=== PATIENT | female | born 1995 | race Caucasian/White ===

== ENCOUNTER 2022-01-11 12:15 | Emergency (ER) | payer OTHER ==
[~2022-01-11] VITALS: Ht 154.9 cm; Wt 64.5 kg
[2022-01-11] MEDS ORDERED: VITAD400CA PO (12:28)
[2022-01-11] MEDS ORDERED: UNIS25TA3 PO (12:28)
[2022-01-11] MEDS ORDERED: ONDA4TAB6 PO (12:28)
[2022-01-11] MEDS ORDERED: MULTTAB20 PO (12:28)
[2022-01-11] MEDS ORDERED: FAMO40TA3 PO (12:28)
[2022-01-11] MEDS ORDERED: METO1TAB7 PO (12:28)
[2022-01-11] MEDS ORDERED: ESOM1CAP5 PO (12:28)
[2022-01-11] MEDS ORDERED: RA N1TAB PO (12:28)
[2022-01-11 13:54] LABS: BASO % 0.4 % (0.0-1.0); EOS % 0.4 % (0.0-3.0); LYMPH # 1.8 10^3/uL (1.5-5.0); LYMPH % 21.3 % (24.0-44.0); MEAN CORPUSCULAR HGB CONC 34.2 g/dl (32.0-36.5); MEAN CORPUSCULAR VOLUME 87.8 fl (80.0-96.0); MONO # 0.4 10^3/uL (0.0-0.8); NEUTROPHILS # 6.1 10^3/uL (1.5-8.5); NEUTROPHILS % 72.5 % (36.0-66.0); PLATELET COUNT, AUTOMATED 214 10^3/uL (150-450); RED BLOOD COUNT 4.33 10^6/uL (4.00-5.40); WHITE BLOOD COUNT 8.4 10^3/uL (4.0-10.0)
[2022-01-11 14:44] LABS: ALBUMIN 3.3 GM/DL (3.2-5.2); ALT/SGPT 24 U/L (12-78); BILIRUBIN,TOTAL 0.4 MG/DL (0.2-1.0); BLOOD UREA NITROGEN 10 MG/DL (7-18); CALCIUM LEVEL 8.5 MG/DL (8.5-10.1); CARBON DIOXIDE LEVEL 25 MEQ/L (21-32); CHLORIDE LEVEL 106 MEQ/L (98-107); CREATININE FOR GFR 0.58 MG/DL (0.55-1.30); GLOMERULAR FILTRATION RATE > 60.0 (>60); GLUCOSE, FASTING 79 MG/DL (70-100); HCG, SERUM QUANTITATIVE 145886 MIU/ML; POTASSIUM SERUM 4.1 MEQ/L (3.5-5.1); SODIUM LEVEL 138 MEQ/L (136-145); TOTAL PROTEIN 6.7 GM/DL (6.4-8.2)
[2022-01-11] MEDS ORDERED: MIRA3350 PO (16:23)
[2022-01-11] MEDS ORDERED: DULC10SU2 PR (16:23)
[2022-01-11] MEDS ORDERED: FLEEENE12 PR (16:24)
[2022-01-11 16:36] VITALS: BP 119/74
== END 2022-01-11 16:38 | disposition home or self-care (01) ==
LOC: M ED 12:15
DX: O26.899 Other specified pregnancy related conditions, unspecified trimester (principal); R10.84 Generalized abdominal pain; K59.00 Constipation, unspecified; Z91.011 Allergy to milk products; Z88.8 Allergy status to other drugs, medicaments and biological substances; Z79.899 Other long term (current) drug therapy; Z3A.09 9 weeks gestation of pregnancy

== ENCOUNTER 2022-08-05 17:14 | Outpatient (CLI) | payer OTHER ==
[~2022-08-05] VITALS: Ht 154.9 cm; Wt 74.3 kg
[~2022-08-05 17:14] MED LIST: DULC10SU2 PR; ESOM1CAP5 PO; FAMO40TA3 PO; FLEEENE12 PR; METO1TAB7 PO; MIRA3350 PO; MULTTAB20 PO; ONDA4TAB6 PO; RA N1TAB PO; UNIS25TA3 PO; VITAD400CA PO
[2022-08-05 17:35] VITALS: BP 116/55
[2022-08-05] MEDS ORDERED: RIBO400T PO (17:41)
[2022-08-05] MEDS ORDERED: ACET325C5 PO (17:42)
[2022-08-05] MEDS ORDERED: HOME MED LIST COMPLETE! XX SCH (17:45)
[2022-08-05 18:30] LABS: HEMATOCRIT 30.4 % (36.0-47.0); HEMOGLOBIN 9.8 g/dl (12.0-15.5); MEAN CORPUSCULAR HEMOGLOBIN 28.2 pg (27.0-33.0); MEAN CORPUSCULAR HGB CONC 32.2 g/dl (32.0-36.5); MEAN CORPUSCULAR VOLUME 87.4 fl (80.0-96.0); PLATELET COUNT, AUTOMATED 136 10^3/uL (150-450); RED BLOOD COUNT 3.48 10^6/uL (4.00-5.40); WHITE BLOOD COUNT 7.8 10^3/uL (4.0-10.0)
[2022-08-05 19:00] LABS: ALBUMIN 2.5 G/DL (3.2-5.2); ALKALINE PHOSPHATASE 127 U/L (46-116); ALT/SGPT 20 U/L (7.0-40); AST/SGOT 42 U/L (<34); BILIRUBIN,TOTAL 0.6 MG/DL (0.3-1.2); BLOOD UREA NITROGEN 11 MG/DL (9-23); CARBON DIOXIDE LEVEL 21 MMOL/L (20-31); CHLORIDE LEVEL 106 MMOL/L (98-107); CREATININE FOR GFR 0.49 MG/DL (0.55-1.30); GLOMERULAR FILTRATION RATE > 60.0 (>60); GLUCOSE, FASTING 77 MG/DL (60-100); SODIUM LEVEL 139 MMOL/L (136-145); TOTAL PROTEIN 5.5 G/DL (5.7-8.2)
[2022-08-05 19:14] VITALS: BP 117/74
== END 2022-08-05 20:52 | disposition home or self-care (01) ==
LOC: M LDO 17:14
PROVIDERS: ATTEND Registered Nurse
DX: O99.613 Diseases of the digestive system complicating pregnancy, third trimester (principal); Z3A.38 38 weeks gestation of pregnancy; K80.20 Calculus of gallbladder without cholecystitis without obstruction; O26.613 Liver and biliary tract disorders in pregnancy, third trimester; K76.0 Fatty (change of) liver, not elsewhere classified; Z88.8 Allergy status to other drugs, medicaments and biological substances; Z91.011 Allergy to milk products; Z91.012 Allergy to eggs; Z91.018 Allergy to other foods; Z91.048 Other nonmedicinal substance allergy status; Z79.899 Other long term (current) drug therapy
CPT/HCPCS: 36415; 59025; 76705; 80053; 85027; 93005; G0378; G0463

== ENCOUNTER 2022-08-17 02:28 | Inpatient (IN) | payer OTHER ==
[~2022-08-17] VITALS: Ht 154.9 cm; Wt 75.2 kg
[2022-08-17] VITALS (32 sets, daily range): BP systolic 98–178; BP diastolic 56–134
[~2022-08-17 02:28] MED LIST changes: +ACET325C5 PO; +RIBO400T PO
[2022-08-17] MEDS ORDERED: TRANEXAMIC ACID INJection 1,000 MG in NS 100 ML IV PRN (03:05)
[2022-08-17] MEDS ORDERED: METHYLERGONOVINE MALEATE 0.2 MG/ML VIAL (J2210) IM PRN ×2 (03:05→09:50)
[2022-08-17] MEDS ORDERED: OXYTOCIN DRIP 30 UNITS in IV 1 EA IV PRN ×4 (03:05)
[2022-08-17] MEDS ORDERED: LIDOCAINE 1% MDV 20ML VIAL INFIL PRN (03:05)
[2022-08-17] MEDS ORDERED: CARBOPROST TROMETHAMINE 250 MCG/ML AMP IM PRN (03:05)
[2022-08-17 03:54] LABS: HEMOGLOBIN 10.1 g/dl (12.0-15.5); MEAN CORPUSCULAR HEMOGLOBIN 28.1 pg (27.0-33.0); MEAN CORPUSCULAR HGB CONC 32.6 g/dl (32.0-36.5); MEAN CORPUSCULAR VOLUME 86.1 fl (80.0-96.0); PLATELET COUNT, AUTOMATED 149 10^3/uL (150-450); WHITE BLOOD COUNT 7.8 10^3/uL (4.0-10.0)
[2022-08-17] MEDS ORDERED: EPIDURAL/PCA KEYS XX PRN (05:10)
[2022-08-17] MEDS ORDERED: diphenhydrAMINE 50MG/ML VIAL IV PRN (05:10)
[2022-08-17] MEDS ORDERED: FENTANYL/ROPIVACAINE/NACL BAG 100 ML EPIDURAL SCH (05:10)
[2022-08-17] MEDS ORDERED: LR 500 ML IV PRN (05:10)
[2022-08-17] MEDS ORDERED: ePHEDrine SULFATE 25 MG/5 ML(5MG/ML) SYRINGE IVP PRN (05:10)
[2022-08-17] MEDS ORDERED: NALOXONE INJ 0.4MG/1ML VIAL IV PRN (05:10)
[2022-08-17] MEDS ORDERED: ONDANSETRON 4MG 2ML VIAL IV PRN ×2 (05:10→09:50)
[2022-08-17] MEDS: LR 1,000 ML IV SCH ×2 (05:21→08:14)
[2022-08-17 08:46] LABS: ALBUMIN 2.5 G/DL (3.2-5.2); ALKALINE PHOSPHATASE 118 U/L (46-116); ALT/SGPT 15 U/L (7.0-40); AST/SGOT 16 U/L (<34); BILIRUBIN,TOTAL 0.4 MG/DL (0.3-1.2); BLOOD UREA NITROGEN 12 MG/DL (9-23); CALCIUM LEVEL 8.1 MG/DL (8.5-10.1); CARBON DIOXIDE LEVEL 22 MMOL/L (20-31); CHLORIDE LEVEL 106 MMOL/L (98-107); CREATININE FOR GFR 0.53 MG/DL (0.55-1.30); GLOMERULAR FILTRATION RATE > 60.0 (>60); GLUCOSE, FASTING 79 MG/DL (60-100); POTASSIUM SERUM 4.2 MMOL/L (3.5-5.1); SODIUM LEVEL 138 MMOL/L (136-145); TOTAL PROTEIN 5.2 G/DL (5.7-8.2)
[2022-08-17 09:30] LABS: CORD GAS ABE A -4.7; CORD GAS ABE V -2.5; CORD GAS HCO3 A 22.8 MEQ/L; CORD GAS HCO3 V 22.3 MEQ/L; CORD GAS O2 SAT A 52.4 %; CORD GAS O2 SAT V 69.9 %; CORD GAS PCO2 A 50.5 mmHg; CORD GAS PCO2 V 38.9 mmHg; CORD GAS PH A 7.272 UNITS; CORD GAS PH V 7.376 UNITS; CORD GAS PO2 V 29.2 mmHg; CORD GAS SBC A 19.5 MEQ/L; CORD GAS SBC V 21.7 MEQ/L; CORD GAS TCO2 A 24.3 MEQ/L; CORD GAS TCO2 V 23.5 MEQ/L
[2022-08-17] MEDS ORDERED: PROMETHAZINE 25 MG TAB PO PRN (09:50)
[2022-08-17] MEDS ORDERED: RHOGAM 300MCG (1500IU) INJ IM SCH (09:50)
[2022-08-17] MEDS ORDERED: DIBUCAINE 1% OINTMENT 30GM TOP PRN (09:50)
[2022-08-17] MEDS ORDERED: OXYTOCIN DRIP 30 UNITS in IV 1 EA IV SCH (10:00)
[2022-08-17] MEDS ORDERED: LR 1,000 ML IV SCH (10:00)
[2022-08-17] MEDS: IBUPROFEN 800 MG TAB PO SCH ×2 (10:23→16:31)
[2022-08-17] MEDS: ESOMEPRAZOLE PO SCH (12:15)
[2022-08-17] MEDS: ACETAMINOPHEN 500 MG TAB PO SCH ×2 (12:15→18:24)
[2022-08-18] MEDS: ACETAMINOPHEN 500 MG TAB PO SCH ×4 (00:02→17:50)
[2022-08-18] MEDS: IBUPROFEN 800 MG TAB PO SCH ×3 (00:03→17:51)
[2022-08-18 06:00] VITALS: BP 113/66
[2022-08-18] MEDS: MAGNESIUM OXIDE 400MG TAB (MAG-OX) PO SCH (08:58)
[2022-08-18] MEDS: PRENATAL VITAMINS CHEWABLE TABLET PO SCH (09:00)
[2022-08-18] MEDS: ESOMEPRAZOLE PO SCH (09:00)
[2022-08-18] MEDS ORDERED: MIRALAX *UNIT DOSE* 17GM PACKET PO PRN (10:50)
[2022-08-18 18:00] VITALS: BP 116/57
[2022-08-18] MEDS: SIMETHICONE 80MG CHEW TAB PO PRN (20:53)
[2022-08-19] MEDS: IBUPROFEN 800 MG TAB PO SCH ×2 (00:01→08:22)
[2022-08-19] MEDS: ACETAMINOPHEN 500 MG TAB PO SCH ×2 (00:01→05:51)
[2022-08-19] MEDS: SIMETHICONE 80MG CHEW TAB PO PRN (03:02)
[2022-08-19 06:00] VITALS: BP 120/56
[2022-08-19] MEDS: PRENATAL VITAMINS CHEWABLE TABLET PO SCH (08:21)
[2022-08-19] MEDS: MAGNESIUM OXIDE 400MG TAB (MAG-OX) PO SCH (08:23)
[2022-08-19] MEDS ORDERED: MEASLES,MUMPS,RUBELLA VACCINE INJ (MMR-II) SC.IMMUN ONE (09:00)
[2022-08-19] MEDS: ESOMEPRAZOLE PO SCH (13:07)
== END 2022-08-19 13:25 | disposition home or self-care (01) | DRG 807 ==
LOC: M LDO 02:28 → M LDI 03:04 → M OBS 12:48
PROVIDERS: ADMIT Obstetrics & Gynecology; ATTEND Obstetrics & Gynecology
PROC: 10E0XZZ Delivery of Products of Conception, External Approach (ICD-10-PCS; principal; 2022-08-17)
PROC: 0HQ9XZZ Repair Perineum Skin, External Approach (ICD-10-PCS; 2022-08-17)
DX: O48.0 Post-term pregnancy (principal); Z37.0 Single live birth; Z3A.40 40 weeks gestation of pregnancy; Z91.011 Allergy to milk products; Z91.012 Allergy to eggs; Z91.018 Allergy to other foods; Z79.899 Other long term (current) drug therapy; O70.0 First degree perineal laceration during delivery

== ENCOUNTER 2022-08-23 08:46 | Emergency (ER) | payer OTHER ==
[~2022-08-23] VITALS: Ht 154.9 cm; Wt 68.0 kg
[2022-08-23] MEDS ORDERED: ACETAMINOPHEN 325 MG TAB PO ONE (09:05)
[2022-08-23] MEDS ORDERED: IBUPROFEN 600MG TAB PO ONE (09:05)
[2022-08-23 09:12] LABS: HEMATOCRIT 33.2 % (36.0-47.0); HEMOGLOBIN 10.7 g/dl (12.0-15.5); MEAN CORPUSCULAR HEMOGLOBIN 27.9 pg (27.0-33.0); MEAN CORPUSCULAR HGB CONC 32.2 g/dl (32.0-36.5); MEAN CORPUSCULAR VOLUME 86.7 fl (80.0-96.0); PLATELET COUNT, AUTOMATED 170 10^3/uL (150-450); RED BLOOD COUNT 3.83 10^6/uL (4.00-5.40); WHITE BLOOD COUNT 4.1 10^3/uL (4.0-10.0)
[2022-08-23 09:42] LABS: BLOOD UREA NITROGEN 16 MG/DL (9-23); CALCIUM LEVEL 8.1 MG/DL (8.5-10.1); CARBON DIOXIDE LEVEL 20 MMOL/L (20-31); CHLORIDE LEVEL 106 MMOL/L (98-107); CREATININE FOR GFR 0.68 MG/DL (0.55-1.30); GLOMERULAR FILTRATION RATE > 60.0 (>60); GLUCOSE, FASTING 99 MG/DL (60-100); POTASSIUM SERUM 3.7 MMOL/L (3.5-5.1); SODIUM LEVEL 140 MMOL/L (136-145)
[2022-08-23 09:59] VITALS: BP 120/68
[2022-08-23] MEDS ORDERED: METO1TAB32 PO (10:08)
[2022-08-23] MEDS ORDERED: REGL10TA6 PO (10:10)
== END 2022-08-23 11:20 | disposition home or self-care (01) ==
LOC: M ED 08:46
DX: U07.1 COVID-19 (principal); Z79.891 Long term (current) use of opiate analgesic; Z79.899 Other long term (current) drug therapy

== ENCOUNTER 2022-10-04 11:36 | Emergency (ER) | payer OTHER ==
[~2022-10-04] VITALS: Ht 154.9 cm; Wt 64.0 kg
[~2022-10-04 11:36] MED LIST changes: +METO1TAB32 PO; +REGL10TA6 PO
[2022-10-04] MEDS ORDERED: ONDA4TAB6 (11:50)
[2022-10-04 12:35] LABS: BASO % 0.4 % (0.0-1.0); EOS # 0.3 10^3/uL (0.0-0.5); EOS % 2.4 % (0.0-3.0); HEMATOCRIT 37.6 % (36.0-47.0); HEMOGLOBIN 11.9 g/dl (12.0-15.5); LYMPH # 1.4 10^3/uL (1.5-5.0); LYMPH % 12.9 % (24.0-44.0); MEAN CORPUSCULAR HEMOGLOBIN 27.5 pg (27.0-33.0); MEAN CORPUSCULAR HGB CONC 31.6 g/dl (32.0-36.5); MEAN CORPUSCULAR VOLUME 86.8 fl (80.0-96.0); MONO # 0.4 10^3/uL (0.0-0.8); NEUTROPHILS # 8.5 10^3/uL (1.5-8.5); NEUTROPHILS % 79.9 % (36.0-66.0); PLATELET COUNT, AUTOMATED 208 10^3/uL (150-450); RED BLOOD COUNT 4.33 10^6/uL (4.00-5.40); WHITE BLOOD COUNT 10.6 10^3/uL (4.0-10.0)
[2022-10-04 13:02] LABS: LIPASE 30 U/L (12-53)
[2022-10-04 13:58] LABS: ALBUMIN 4.4 G/DL (3.2-5.2); ALKALINE PHOSPHATASE 158 U/L (46-116); ALT/SGPT 31 U/L (7.0-40); AST/SGOT 78 U/L (<34); BILIRUBIN,DIRECT 0.2 MG/DL (<0.4); BILIRUBIN,TOTAL 0.6 MG/DL (0.3-1.2); BLOOD UREA NITROGEN 17 MG/DL (9-23); CALCIUM LEVEL 9.7 MG/DL (8.5-10.1); CARBON DIOXIDE LEVEL 26 MMOL/L (20-31); CHLORIDE LEVEL 105 MMOL/L (98-107); CREATININE FOR GFR 0.64 MG/DL (0.55-1.30); GLOMERULAR FILTRATION RATE > 60.0 (>60); GLUCOSE, FASTING 92 MG/DL (60-100); POTASSIUM SERUM 4.4 MMOL/L (3.5-5.1); SODIUM LEVEL 140 MMOL/L (136-145)
[2022-10-04 14:10] LABS: TOTAL PROTEIN 7.4 G/DL (5.7-8.2)
[2022-10-04] MEDS ORDERED: AMOX875T2 PO (14:26)
[2022-10-04 14:35] VITALS: BP 113/59
== END 2022-10-04 14:35 | disposition home or self-care (01) ==
LOC: M ED 11:36
DX: K80.64 Calculus of gallbladder and bile duct with chronic cholecystitis without obstruction (principal); K21.9 Gastro-esophageal reflux disease without esophagitis; F41.9 Anxiety disorder, unspecified; J45.909 Unspecified asthma, uncomplicated; G43.909 Migraine, unspecified, not intractable, without status migrainosus; Z91.011 Allergy to milk products; Z91.012 Allergy to eggs; Z91.018 Allergy to other foods; Z79.82 Long term (current) use of aspirin; Z79.2 Long term (current) use of antibiotics; Z79.899 Other long term (current) drug therapy